=== PATIENT | male | born 2000 | race Caucasian/White ===

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

== ENCOUNTER 2022-04-23 10:30 | Emergency (ER) | payer OTHER | END 2022-04-23 13:08 | disposition home or self-care (01) | LOC: CSHERS 10:30 | DX: J06.9 Acute upper respiratory infection, unspecified (principal); H10.9 Unspecified conjunctivitis; Z20.822 Contact with and (suspected) exposure to COVID-19 | CPT/HCPCS: 87081; 87430; 87804; 99283; U0003; U0005 ==

== ENCOUNTER 2022-06-15 10:33 | Emergency (ER) | payer OTHER | END 2022-06-15 11:59 | disposition home or self-care (01) | LOC: CSHERS 10:33 | DX: B34.9 Viral infection, unspecified (principal); Z20.822 Contact with and (suspected) exposure to COVID-19 | CPT/HCPCS: 87804; 99283; U0003; U0005 ==

== ENCOUNTER 2023-06-15 09:52 | Emergency (ER) | payer OTHER ==
[2023-06-15 11:58] LABS: SARS-CoV-2 NAA Rapid Test DETECTED (NotDetected)
== END 2023-06-15 12:58 | disposition home or self-care (01) ==
LOC: CSHERS 09:52
DX: U07.1 COVID-19 (principal)
CPT/HCPCS: 71045; 93005; 93010